=== PATIENT | female | born 1965 | race American Indian/Alaskan Native ===

== ENCOUNTER 2019-01-26 08:10 | Emergency (ER) | payer SELFPAY ==
[2019-01-26 08:57] LABS: Hemoglobin 12.6 gm/dl (10.1-14.3); Red Blood Count 4.47 M/mm3 (3.65-5.03)
[2019-01-26 08:58] LABS: Basophils % (Auto) 0.6 % (0.0-1.8); Eosinophils % (Auto) 2.5 % (0.0-4.3); Hematocrit 38.6 % (30.3-42.9); Lymphocytes % (Auto) 22.8 % (13.4-35.0); Mean Corpuscular HGB Conc 33 % (30-34); Mean Corpuscular Volume 86 fl (79-97); Mean Platelet Volume 8.4 fl (6-12); Monocytes % (Auto) 9.9 % (0.0-7.3); Platelet Count 359 K/mm3 (140-440); Red Cell Distribution Width 18.8 % (13.2-15.2)
[2019-01-26 08:59] LABS: Basophils # (Auto) 0.1 K/mm3 (0.0-0.1); Eosinophils # (Auto) 0.4 K/mm3 (0.0-0.4); Lymphocytes # (Auto) 3.6 K/mm3 (1.2-5.4); Monocytes # (Auto) 1.6 K/mm3 (0.0-0.8)
[2019-01-26 09:01] LABS: Bacteria,Urine 2+ /HPF (Negative); Bilirubin,Urine NEG (Negative); Blood,Urine LG (Negative); Color,Urine Amber (Yellow); Mucus,Urine 3+ /HPF; WBC,Urine > 182.0 /HPF (0.0-6.0)
[2019-01-26 09:13] LABS: Alanine Aminotransferase 12 units/L (7-56); Albumin 3.7 g/dL (3.9-5); BUN/Creatinine Ratio 8; Blood Urea Nitrogen 5 mg/dL (7-17); Calcium 9.3 mg/dL (8.4-10.2); Hemolysis Index 0
[2019-01-26] MEDS ORDERED: NACL 0.9% 1000 ML 1,000 ML IV ONE (10:19)
[2019-01-26] MEDS ORDERED: ZOFRAN IV ONE (10:19)
[2019-01-26] MEDS ORDERED: SUBLIMAZE IV ONE (10:19)
--- NOTE | 2019-01-26 10:24 | Emergency Department Report ---
HPI - General Chief Complaint: Abdominal Pain Time Seen by Provider: 01/26/19 10:08 - [facility] HPI: Room 24 The patient is a 51-year-old female presenting with a chief complaint of abdominal pain. Patient complains of pain across the top of her stomach inte rmittently times several months. Patient states her most recent episode began approximately 2 weeks ago has been intermittent and sharp in nature. Patient denies nausea vomiting or diarrhea. Patient denies history of fever. She states her bowel movements have been within normal limits. Patient states for the past 2 days she's had a decreased appetite. Patient denies dysuria but admits to clear vaginal discharge for approximately one month. Patient currently gives her pain a score of 10/10 Location: [See above] Duration: [See above] Quality: [See above] Severity: [See above] Modifying factors: [see above] Context: [see above] Mode of transportation: [not driving] ED Past Medical Hx - Past Medical History Previous Medical History?: No - Surgical History Past Surgical History?: No - Family History Family history: no significant - Social History Smoking Status: Current Every Day Smoker (1/4 pack per day) Substance Use Type: None (denies illicit drug use), Alcohol (moderately) - Medications Home Medications: Home Medications Medication Instructions Recorded Confirmed Last Taken Type Ciprofloxacin HCl [Ciprofloxacin 500 mg PO Q12HR #20 tab 01/26/19 Unknown Rx TAB] Famotidine [Pepcid] 20 mg PO BID #30 tablet 01/26/19 Unknown Rx HYDROcodone/APAP 5-325 [Keene 1 - 2 each PO Q6HR PRN #14 tablet 01/26/19 Unknown Rx 5/325] ED Review of Systems ROS: Stated complaint: STOMACH PAIN Other details as noted in HPI Constitutional: denies: fever Eyes: denies: eye pain ENT: denies: throat pain Respiratory: no symptoms reported Cardiovascular: denies: chest pain Endocrine: no symptoms reported Gastrointestinal: abdominal pain. denies: nausea, vomiting, diarrhea Genitourinary: discharge. denies: dysuria Musculoskeletal: denies: back pain Neurological: denies: headache Physical Exam - Physical Exam Vital Signs: Vital Signs 01/26/19 08:15 Temperature 98.2 F Pulse Rate 109 H Respiratory 22 Rate Blood Pressure 163/95 O2 Sat by Pulse 97 Oximetry Physical Exam: GENERAL: The patient is well-developed well-nourished female lying on stretcher not appearing to be in acute distress. [] HEENT: Normocephalic. Atraumatic. Extraocular motions are intact. Patient has moist mucous membranes. NECK: Supple. Trachea midline CHEST/LUNGS: Clear to auscultation. There is no respiratory distress noted. HEART/CARDIOVASCULAR: Regular. There is no tachycardia. There is no gallop rub or murmur. ABDOMEN: Abdomen is soft, with tenderness to palpation in the right upper quadrant, midepigastric and left upper quadrant (tenderness greatest in right upper quadrant). There is no rebound or guarding. There is no tenderness to palpation in the right lower quadrant, suprapubic or left lower quadrant. Patient has normal bowel sounds. There is no abdominal distention. SKIN: There is no rash. There is no edema. There is no diaphoresis. NEURO: The patient is awake, alert, and oriented. The patient is cooperative. The patient has normal speech MUSCULOSKELETAL: There is no CVA tenderness. There is no evidence of acute injury. 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 Denise- should follow-up in the office in 3 days (Tuesday) ED Medical Decision Making - Lab Data Result diagrams: 01/26/19 08:37 01/26/19 08:37 Laboratory Tests 01/26/19 01/26/19 01/26/19 08:37 08:37 08:37 WBC 15.7 H RBC 4.47 Hgb 12.6 Hct 38.6 MCV 86 MCH 28 MCHC 33 RDW 18.8 H Plt Count 359 Lymph % (Auto) 22.8 [place] % (Auto) 9.9 H Eos % (Auto) 2.5 Baso % (Auto) 0.6 Lymph # 3.6 [place] # 1.6 H Eos # 0.4 Baso # 0.1 Seg Neutrophils % 64.2 Seg Neutrophils # 10.1 H Sodium 136 L Potassium 3.8 Chloride 98.4 Carbon Dioxide 25 Anion Gap 16 BUN 5 L Creatinine 0.6 L Estimated GFR > 60 BUN/Creatinine Ratio 8 Glucose 115 H Calcium 9.3 Total Bilirubin 0.50 AST 16 ALT 12 Alkaline Phosphatase 119 Total Protein 8.1 Albumin 3.7 L Albumin/Globulin Ratio 0.8 Lipase 15 Urine Color Urine Turbidity Urine pH Ur Specific [place] Urine Protein Urine Glucose (UA) Urine Ketones Urine Blood Urine Nitrite Urine Bilirubin Urine Urobilinogen Ur Leukocyte Esterase Urine WBC (Auto) Urine RBC (Auto) U Epithel Cells (Auto) Urine Bacteria (Auto) Urine Mucus Urine HCG, Qual 01/26/19 01/26/19 10:16 Unknown WBC RBC Hgb Hct MCV MCH MCHC RDW Plt Count Lymph % (Auto) [place] % (Auto) Eos % (Auto) Baso % (Auto) Lymph # [place] # Eos # Baso # Seg Neutrophils % Seg Neutrophils # Sodium Potassium Chloride Carbon Dioxide Anion Gap BUN Creatinine Estimated GFR BUN/Creatinine Ratio Glucose Calcium Total Bilirubin AST ALT Alkaline Phosphatase Total Protein Albumin Albumin/Globulin Ratio Lipase Urine Color [place]a Urine Turbidity Cloudy Urine pH 5.0 Ur Specific [place] 1.025 Urine Protein 100 mg/dl Urine Glucose (UA) Neg Urine Ketones Tr Urine Blood Lg Urine Nitrite Neg Urine Bilirubin Neg Urine Urobilinogen 2.0 Ur Leukocyte Esterase Mod Urine WBC (Auto) > 182.0 H Urine RBC (Auto) 123.0 U Epithel Cells (Auto) 3.0 Urine Bacteria (Auto) 2+ Urine Mucus 3+ Urine HCG, Qual Negative - Radiology Data Radiology results: report reviewed (pelvic ultrasound), image reviewed (pelvic ultrasound) [facility] [address] [place] [address] Ultrasound Report Signed Patient: JOANNA LLOYD MR#: [id number] : 1965 Acct:[id number] Age/Sex: 53 / F ADM Date: 01/26/19 Loc: ED Attending Dr: Ordering Physician: BARRETT MANUEL MD Date of Service: 01/26/19 Procedure(s): US pelvic complete Accession Number(s): [id number] cc: BARRETT MANUEL MD ULTRASOUND PELVIC COMPLETE ULTRASOUND TRANSVAGINAL HISTORY: Abnormal uterine appearance on CT TECHNIQUE: Transabdominal and transvaginal ultrasound with color Doppler imaging COMPARISON: CT abdomen pelvis with contrast performed the same day. FINDINGS: Uterus is anteverted and mildly enlarged measuring 12.3 x 6.7 x 7.8 cm. Approximately 4 uterine fibroids are identified. In the posterior wall 1.8, 2.8 and 1.9 cm fibroids are identified. A 4.9 cm fibroid is identified in the anterior fundus. The endometrium is markedly thickened and abnormal measuring up to 4.3 cm in thickness. There is moderate fluid throughout the endometrial canal containing debris. The right ovary measures 2.9 x 2.2 breasts 2.6 cm. No focal abnormality. The left ovary is not visualized. IMPRESSION: Uterine fibroid disease. Markedly thickened and complex endometrium as described. This may represent retained blood products in the endometrial canal. Necrotic endometrial mass cannot be excluded. Gynecologic consultation is recommended. Signer Name: Bhupendra Roberts Jr, MD Signed: 01/26/2019 2:21 PM Workstation Name: [id number] Transcribed By: TTR Dictated By: BHUPENDRA ROBERTS JR, MD Electronically Authenticated By: BHUPENDRA ROBERTS JR, MD Signed Date/Time: 01/26/19 1421 DD/ 1415 TD/TT: - Differential Diagnosis gastritis, pyelonephritis, pancreatitis, symptomatic cholelithiasis Critical care attestation.: If time is entered above; I have spent that time in minutes in the direct care of this critically ill patient, excluding procedure time. ED Disposition Clinical Impression: Acute abdominal pain, Abnormal ultrasound of uterus, UTI (urinary tract infecti on), Gastric ulcer Disposition: DC-01 TO HOME OR SELFCARE Is pt being admited?: No Does the pt Need Aspirin: No Condition: Stable Instructions: Abdominal Pain (ED), Uterine Fibroids (ED) Additional Instructions: Return to the emergency department immediately should you develop worsening symptoms, fever, inability to tolerate food or liquid or any other concerns. 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 Please follow-up with him or another TOBACCO STRIPPING MACHINE OPERATOR as soon as possible for further evaluation) TONY MONGE MD [Primary Care Provider] - JONG Time of Disposition: 14:54
[2019-01-26 10:29] LABS: HCG Qualitative,Urine Negative (Negative)
--- NOTE | 2019-01-26 13:07 | Cat Scan Report ---
CT ABDOMEN AND PELVIS WITH CONTRAST INDICATION / CLINICAL INFORMATION: upper abdominal pain. TECHNIQUE: Axial CT images were obtained through the abdomen and pelvis after IV contrast. All CT scans at this location are performed using CT dose reduction for ALARA by means of automated exposure control. COMPARISON: None available. FINDINGS: LOWER CHEST: No significant abnormality. LIVER: No significant abnormality. GALLBLADDER: No significant abnormality. BILE DUCTS: No significant abnormality. PANCREAS: No significant abnormality. SPLEEN: No significant abnormality. ADRENALS: No significant abnormality. RIGHT KIDNEY and URETER: No significant abnormality. LEFT KIDNEY and URETER: No significant abnormality. STOMACH and SMALL BOWEL: There is an ulcer of the posterior wall of the distal gastric antrum best se en on axial series 2 image 30. Ulcer crater measures about 1.0 x 1.9 cm. There is moderate adjacent g astric wall thickening and perigastric inflammation. No small bowel abnormality. COLON: No significant abnormality. APPENDIX: No significant abnormality. PERITONEUM: No free fluid. No free air. No fluid collection. LYMPH NODES: No significant adenopathy. AORTA and ARTERIES: Mild atherosclerotic calcification without acute abnormality. IVC and VEINS: No significant abnormality. URINARY BLADDER: No significant abnormality. REPRODUCTIVE ORGANS: Uterus is enlarged containing multiple mildly enhancing nodules likely represent ing fibroids. There is prominent hypodensity in the endometrial cavity. ADDITIONAL FINDINGS: None. SKELETAL SYSTEM: No significant abnormality. IMPRESSION: 1. Gastric ulcer on the posterior wall of the gastric antrum with adjacent gastric wall thickening an d perigastric inflammation. No perforation, free air, or abscess. 2. Enlarged myomatous uterus with prominent endometrial hypodensity which could represent fluid or en dometrial hyperplasia. Dedicated pelvic ultrasound and gynecologic consultation is recommended. Signer Name: Tosha Gregorio MD Signed: 01/26/2019 1:03 PM Workstation Name: [id number] [employer]
--- NOTE | 2019-01-26 14:25 | Ultrasound Report ---
ULTRASOUND PELVIC COMPLETE ULTRASOUND TRANSVAGINAL HISTORY: Abnormal uterine appearance on CT TECHNIQUE: Transabdominal and transvaginal ultrasound with color Doppler imaging COMPARISON: CT abdomen pelvis with contrast performed the same day. FINDINGS: Uterus is anteverted and mildly enlarged measuring 12.3 x 6.7 x 7.8 cm. Approximately 4 uterine fibro ids are identified. In the posterior wall 1.8, 2.8 and 1.9 cm fibroids are identified. A 4.9 cm fibro id is identified in the anterior fundus. The endometrium is markedly thickened and abnormal measuring up to 4.3 cm in thickness. There is mode rate fluid throughout the endometrial canal containing debris. The right ovary measures 2.9 x 2.2 breasts 2.6 cm. No focal abnormality. The left ovary is not visualized. IMPRESSION: Uterine fibroid disease. Markedly thickened and complex endometrium as described. This may represent retained blood products i n the endometrial canal. Necrotic endometrial mass cannot be excluded. Gynecologic consultation is re commended. Signer Name: Bhupendra Roberts Jr, MD Signed: 01/26/2019 2:21 PM Workstation Name: [id number]
[2019-01-26] MEDS ORDERED: LEVAQUIN PO ONE (14:54)
[2019-01-26 15:21] VITALS: BP 148/88
== END 2019-01-26 15:10 | disposition home or self-care (01) ==
LOC: ED 08:10
DX: N39.0 Urinary tract infection, site not specified (principal); R93.5 Abnormal findings on diagnostic imaging of other abdominal regions, including retroperitoneum; K25.9 Gastric ulcer, unspecified as acute or chronic, without hemorrhage or perforation; F17.200 Nicotine dependence, unspecified, uncomplicated
CPT/HCPCS: 36415; 74177; 76830; 76856; 80053; 81001; 81025; 83690; 85025; 87210; 87591; 96374; 96375; 99285; J2405; J3010; J7030; Q9967